=== PATIENT | male | born 1995 | race American Indian/Alaskan Native ===

== ENCOUNTER 2020-04-07 14:10 | Emergency (ER) | payer OTHER ==
[2020-04-07 15:45] VITALS: BP 138/78
--- NOTE | 2020-04-07 16:36 | XRay Report ---
LEFT FOOT 2 VIEWS INDICATION / CLINICAL INFORMATION: Staple in foot. COMPARISON: None available. FINDINGS: BONES / JOINT(S): No acute fracture or subluxation. No significant arthritis. SOFT TISSUES: No significant abnormality. ADDITIONAL FINDINGS: None. IMPRESSION: No acute abnormality. I do not identify a radiopaque foreign body. Signer Name: Cesario Moore MD Signed: 04/07/2020 4:32 PM Workstation Name: [id number]
[2020-04-07] MEDS ORDERED: DIPHtheria,PERTUSSIS(ACELL),TETANUS VACCINE/PF 0.5 ML VIAL IM ONE (18:06)
--- NOTE | 2020-04-07 18:08 | Emergency Department Report ---
- General Chief complaint: Extremity Injury, Lower Stated complaint: LT FOOT STABLE IN IT Time Seen by Provider: 04/07/20 18:01 Source: patient Mode of arrival: Ambulatory Limitations: No Limitations - History of Present Illness Initial comments: Mr. Maciel is a 25-year-old -[place] male who comes to the ER after stepping on a carpet tack, 2 days ago. Patient has a sensation of foreign body in his left foot. Patient has not seen a medical provider until this time. He has taken nothing or done nothing to alleviate the pain prior to arrival. MD complaint: other -: Sudden, days(s) Tetanus Up to Date: no Severity: mild Quality: aching Consistency: constant Improves with: immobilization Worsens with: movement Context: none Associated symptoms: denies other symptoms Treatments Prior to Arrival: none - Related Data Allergies Allergy/AdvReac Type Severity Reaction Status Date / Time No Known Allergies Allergy Unverified 04/07/20 15:42 Abscess Boil HPI - HPI Chief Complaint: Extremity Injury, Lower Stated Complaint: LT FOOT STABLE IN IT Time Seen by Provider: 04/07/20 18:01 Allergies/Adverse Reactions: Allergies Allergy/AdvReac Type Severity Reaction Status Date / Time No Known Allergies Allergy Unverified 04/07/20 15:42 ED Review of Systems ROS: Stated complaint: LT FOOT STABLE IN IT Other details as noted in HPI Comment: All other systems reviewed and negative ED Past Medical Hx - Past Medical History Previous Medical History?: No - Surgical History Past Surgical History?: Yes Additional Surgical History: right knee arthroscopy - Family History Family history: no significant - Social History Smoking Status: Never Smoker Substance Use Type: None ED Physical Exam - General Limitations: No Limitations General appearance: alert, in no apparent distress - Head Head exam: Present: atraumatic, normocephalic - Eye Eye exam: Present: normal appearance - ENT ENT exam: Present: mucous membranes moist - Neck Neck exam: Present: normal inspection - Respiratory Respiratory exam: Present: normal lung sounds bilaterally. Absent: respiratory distress - Cardiovascular Cardiovascular Exam: Present: regular rate, normal rhythm. Absent: systolic murmur, diastolic murmur, rubs, gallop - GI/Abdominal GI/Abdominal exam: Present: soft, normal bowel sounds - Rectal Rectal exam: Present: deferred - Extremities Exam Extremities exam: Present: normal inspection - Expanded Lower Extremity Exam Left Neuro vascular tendon exam: Present: no vascular compromise Gait: Positive: observed and normal 1 - Puncture wound - Back Exam Back exam: Present: normal inspection - Neurological Exam Neurological exam: Present: alert, oriented X3 - Psychiatric Psychiatric exam: Present: normal affect, normal mood - Skin Skin exam: Present: warm, dry, normal color. Absent: rash ED Course Vital Signs 04/07/20 15:43 Temperature 97.8 F Pulse Rate 62 Respiratory 18 Rate Blood Pressure 138/78 O2 Sat by Pulse 100 Oximetry ED Medical Decision Making - Radiology Data Radiology results: report reviewed, image reviewed interpreted by me: No foreign body No foreign body - Medical Decision Making No foreign body on exam or on x-ray. Tetanus shot updated. Patient educated on post puncture wound care. Patient discharged home with discharge instructions: Which he verbalizes understanding of. Vital Signs 04/07/20 15:43 Temperature 97.8 F Pulse Rate 62 Respiratory 18 Rate Blood Pressure 138/78 O2 Sat by Pulse 100 Oximetry - Differential Diagnosis Rule out foreign body Critical care attestation.: If time is entered above; I have spent that time in minutes in the direct care of this critically ill patient, excluding procedure time. ED Disposition Clinical Impression: Puncture wound Disposition: DC-01 TO HOME OR SELFCARE Is pt being admited?: No Does the pt Need Aspirin: No Condition: Stable Additional Instructions: keep foot clean allow it to heal tetanus updated today no foreign body on xray Referrals: JOEL WAGNER MD [Staff Physician] - 3-5 Days Time of Disposition: 18:06
== END 2020-04-07 18:20 | disposition home or self-care (01) ==
LOC: ED 14:10
DX: S91.332A Puncture wound without foreign body, left foot, initial encounter (principal); Z98.890 Other specified postprocedural states; W22.8XXA Striking against or struck by other objects, initial encounter; Y93.89 Activity, other specified; Y92.89 Other specified places as the place of occurrence of the external cause; Y99.8 Other external cause status
CPT/HCPCS: 90471; 90715